=== PATIENT | male | born 1955 | race Caucasian/White ===

== ENCOUNTER 2019-04-14 08:49 | Emergency (ER) | payer MEDICARE ==
[~2019-04-14] VITALS: Ht 177.8 cm; Wt 78.9 kg
[2019-04-14 09:02] VITALS: Ht 177.8 cm; Wt 78.9 kg
[2019-04-14 09:27] LABS: BASOPHIL % 1.2 % (0-2); PLATELET COUNT 161 x10^3mcL (130-400)
[2019-04-14 09:28] LABS: CALCIUM 9.3 mg/dL (8.5-10.1); CARBON DIOXIDE 29.2 mmol/L (21-32); CREATININE SERUM 1.6 mg/dL (0.7-1.3); POTASSIUM SERUM 3.9 mmol/L (3.5-5.1); RED CELL DISTRIBUTION WIDTH 15.6 % (11.5-14.5)
[2019-04-14 09:33] LABS: BILIRUBIN TOTAL 0.73 mg/dL (0.20-1.00); TOTAL PROTEIN, SERUM 6.5 g/dL (6.4-8.2)
[2019-04-14 09:33] LABS: microscopic required? YES; urine erythrocyte 1+ (NEGATIVE)
[2019-04-14 09:38] LABS: ALBUMIN 3.2 g/dL (3.4-5.0)
[2019-04-14 11:00] VITALS: BP 112/55
== END 2019-04-14 11:00 | disposition short-term general hospital (02) ==
LOC: ED 08:49
PROVIDERS: Emergency Medicine
DX: R00.1 Bradycardia, unspecified (principal); R79.89 Other specified abnormal findings of blood chemistry; I10 Essential (primary) hypertension
CPT/HCPCS: 36415